=== PATIENT | female | born 1940 | race Caucasian/White ===

== ENCOUNTER 2017-04-26 06:22 | Inpatient (IN) ==
[2017-04-26] MEDS ORDERED: DUONEB (A & A) INH ONE (06:51)
[2017-04-26] MEDS ORDERED: SOLU-MEDROL IV ONE (06:51)
[2017-04-26 07:08] LABS: ALLEN TEST YES; BE 3.4 mmoll (-3.0-3.0); BLOOD TYPE ARTERIAL; DRAW SITE R RADIAL; O2(CT) 19.4 mL/dL (15.0-23.0); PCO2(98.6) 47 mmHg (35-45); PO2(98.6) 85 mmHg (60-100); SAMPLE BLOOD; SAO2 97.9 % (95.0-100.0); THB 14.6 g/dL (11.5-17.4)
[2017-04-26 07:09] LABS: MODALITY CANNULA
[2017-04-26 07:27] LABS: MANUAL DIFF NEEDED? NO
--- NOTE | 2017-04-26 07:28 | Diag Imaging Result Doc PS360 ---
EXAM: CHEST-PORTABLE - 04/26/2017 HISTORY: SOB TECHNIQUE: Portable chest 0655 COMPARISON: 05/10/2015 FINDINGS: Heart size is normal. There is an air-containing retrocardiac density consistent with large hiatal hernia again seen. The lungs appear clear. There are apparent mild COPD changes. There is no pleural effusion or pneumothorax identified. There is deviation the lower trachea to the right which appears to be chronic. IMPRESSION: Large hiatal hernia. Mild COPD changes. No other evidence of acute disease. Electronically signed by Joe Salcedo 04/26/2017 7:26 AM
[2017-04-26 07:30] LABS: BASO% 0.3 % (0.0-0.8); EOS# 0.38 X1000 (0.0-0.7); EOS% 3.3 % (0.0-10.0); HEMATOCRIT 44.5 % (37.0-47.0); HEMOGLOBIN 14.8 g/dL (12.0-16.0); IMM GRAN# 0.02 X1000 (0.0-0.04); IMM GRAN% 0.2 % (0.0-0.5); LYMPH# 1.79 X1000 (1.2-3.4); LYMPH% 15.3 % (20.5-51.1); MCH 28.3 PG (27-31); MCHC 33.3 g/dL (33-37); MCV 85.1 FL (81-99); MONO# 0.77 X1000 (0.11-0.59); MONO% 6.6 % (1.7-9.3); MPV 12.2 FL (7.4-10.4); NEUT% 74.3 % (42.2-75.2); PLT 222 X1000 (130-400); RBC 5.23 XMIL (4.2-5.4)
[2017-04-26 07:40] LABS: INR 0.96; PROTIME 10.1 Seconds (9.2-11.7)
[2017-04-26 07:49] LABS: AGAP 13; ALKALINE PHOSPHATASE 52 U/L (32-104); BUN 13 mg/dL (8-22); CALCIUM 9.3 mg/dL (8.8-10.2); CHLORIDE 102 mmol/L (98-107); CK PROFILE 97 U/L (24-173); COSMO 284; GOT 17 U/L (10-30); GPT 11 U/L (10-36); MAGNESIUM 2.3 mg/dL (1.5-2.7); POTASSIUM 4.5 mmol/L (3.5-5.1); SODIUM 142 mmol/L (136-145); TCO2 27 mmol/L (25-35); TOTAL BILIRUBIN 0.23 mg/dL (0.20-1.00); TOTAL PROTEIN 6.9 g/dL (6.3-8.3)
--- NOTE | 2017-04-26 08:43 | PROVIDER DOCUMENTATION ---
HPI-Respiratory General - General Chief Complaint: Shortness of Breath Stated Complaint: SOB Time Seen by Provider: 04/26/17 06:30 Source: patient, family Allergies/Adverse Reactions: Patient Allergies Allergy/AdvReac Type Severity Reaction Status Date / Time Cephalosporins Allergy Severe Unknown Verified 05/10/13 16:10 ciprofloxacin [From Cipro] Allergy Severe Unknown Verified 05/10/13 16:10 ciprofloxacin HCl * Allergy Severe Unknown Verified 05/10/13 16:10 [From Cipro] codeine [Codeine] Allergy Severe RASH Verified 05/10/13 16:10 meperidine HCl * Allergy Severe NAUSEA/VOMI Verified 05/10/13 16:10 [From Demerol] TING Penicillins Allergy Severe RASH Verified 05/10/13 16:10 aspirin Allergy Intermediate RASH Verified 05/10/13 16:10 morphine Allergy Intermediate Unknown Verified 05/11/13 07:14 Corticosteroids Allergy Unknown Verified 05/12/13 11:11 (Glucocorticoids) Iodinated Contrast Media - Allergy Unknown Verified 05/12/13 11:12 Oral and atropine sulfate * Allergy Unknown Verified 05/10/13 16:10 [From Lomotil] diphenoxylate HCl * Allergy Unknown Verified 05/10/13 16:10 [From Lomotil] Home Medications: Home Medication List Medication Instructions Recorded Confirmed Last Taken Type Albuterol [Albuterol Neb] 2.5 mg INH RTQ6H 05/10/13 05/10/13 Unknown History Fluticasone 50 Mcg Nasal [place] 2 spray EDMAR DAILY 05/10/13 05/10/13 Unknown History [Flonase] Ipratropium [place] Neb [Atrovent 0.5 mg INH RTQ6H 05/10/13 05/10/13 05/11/13 07 :00 History Neb] Levothyroxine Sodium [Levoxyl] 100 mcg PO 05/10/13 05/10/13 05/11/13 05:00 History Levothyroxine [Synthroid] 100 microgm PO DAILY 05/10/13 05/10/13 Unknown History Omeprazole [Prilosec] 20 mg PO DAILY@0700 05/10/13 05/10/13 Unknown History Paroxetine [Paxil] 20 mg PO DAILY 05/10/13 05/10/13 05/10/13 21:00 History Hydrocodone/Acetaminophen [Lortab 1 each PO Q4H PRN PRN #0 tablet 05/12/13 Unknown Rx 5-500 Tablet] Multivitamin/Iron/Folic Acid 1 each PO DAILY #0 tablet 05/12/13 Unknown Rx [Multi Complete-Iron Tablet] - History of Present Illness-Resp Nature of Presenting Problem: Reports SOB since 2 days ago, and progressively getting worse. H/o COPD on home O2 X years ago, but she was taken off of O2 after quitting smoking a couple of years ago. Pt went back to smoking recently and her SOB is getting worse again. Quality of Pain: reports: none Severity in ED: reports: moderate Onset/Duration: reports: 2 days ago Timing: reports: still present Context: denies: recent foreign travel, insect bite (possible tick) Exposure: reports: unknown cause Cough Quality/Degree: reports: moderate, dry cough Episode Frequency: chronic episodes Current Respiratory Medication Therapy: Initiated see nurses note Modifying Factors: improves with: nothing Associated Symptoms: reports: cough, shortness of breath, wheezing Similar Symptoms Previously?: Yes Recently seen or treated by another doctor?: Yes Review of Systems - Adult - REVIEW OF SYSTEMS - ADULT Constitutional: reports: no symptoms reported Eyes: reports: no symptoms reported Ears, Nose, Mouth & Throat: reports: no symptoms reported Cardiovascular: reports: no symptoms reported. denies: chest pain Respiratory: reports: see HPI, chronic cough, shortness of breath, wheezing Gastrointestinal: reports: no symptoms reported Genitourinary: reports: no symptoms reported Musculoskeletal: reports: no symptoms reported Integumentary: reports: no symptoms reported Neurological: reports: no symptoms reported Psychiatric: reports: no symptoms reported Endocrine: reports: no symptoms reported Hematologic/Lymphatic: reports: no symptoms reported Allergic/Immunologic: reports: no symptoms reported All Other Systems: Reviewed and Negative Past History - Adult - PAST MEDICAL HISTORY-ADULT Review of Records: reports: Old Records Reviewed, Nursing Assessment Review, Medications Reviewed Physical Exam-General - PHYSICAL EXAM-ADULT Initial Vital Signs Reviewed: Yes - CONSTITUTIONAL General Appearance: appears well, alert, no apparent distress - EYES Eyes: PERRL/EOMI, pink conjunctivae - HEAD, EARS, NOSE, MOUTH & THROAT HENMT: normocephalic/atraumatic, moist mucous membranes, normal ENT inspection - NECK Neck: non-tender, full range of motion, supple - RESPIRATORY Respiratory: chest non-tender, normal breath sounds, no pleuratic chest pain, no respiratory distress, no accessory muscle use, decreased breath sounds, wheezing. negative: rales, rhonchi - CARDIOVASCULAR Cardiovascular: normal peripheral pulses, regular rate, rhythm, no edema - GASTROINTESTINAL (ABDOMEN) Abdominal Exam: normal bowel sounds, non tender, soft, no organomegaly, no pulsatile mass - MUSCULOSKELETAL Back Exam: normal inspection, no CVA tenderness, no vertebral tenderness Extremity: normal range of motion, non-tender, normal gait - SKIN Integumentary: normal color, normal turgor, warm/dry - NEUROLOGIC Neurologic: no motor/sensory deficits, abnormal gait - PSYCHIATRIC Psych/Mental Status: normal mood/affect, normal thought content, normal thought process, oriented x 3 Progress - PLAN OF CARE/RESULTS Progress/Plan/Lab Results: Vital Signs - 8 hr 04/26/17 06:36 04/26/17 06:39 04/26/17 06:55 Temperature 98.0 F Pulse Rate 94 H 94 H 96 H Respiratory Rate 13 26 H 22 Blood Pressure 141/95 141/95 O2 Sat by Pulse Oximetry 92 L 90 L 95 04/26/17 07:05 Temperature Pulse Rate 97 H Respiratory Rate 22 Blood Pressure 141/95 O2 Sat by Pulse Oximetry 96 Laboratory Results - last 24 hr 04/26/17 04/26/17 04/26/17 06:51 07:17 07:17 WBC 11.69 H RBC 5.23 Hgb 14.8 Hct 44.5 MCV 85.1 MCH 28.3 MCHC 33.3 RDW Std Deviation 13.8 Plt Count 222 MPV 12.2 H Immature Gran % (Auto) 0.2 Neut % (Auto) 74.3 Lymph % (Auto) 15.3 L [place] % (Auto) 6.6 Eos % (Auto) 3.3 Baso % (Auto) 0.3 Immature Gran # (Auto) 0.02 Neut # (Auto) 8.69 H Lymph # (Auto) 1.79 [place] # (Auto) 0.77 H Eos # (Auto) 0.38 Baso # (Auto) 0.04 PT INR PTT (Actin FS) D-Dimer Specimen Type ARTERIAL Sample Site R RADIAL pH 7.40 pCO2 47 H pO2 85 HCO3 27.5 H Base Excess 3.4 H Oxyhemoglobin 94.3 L ABG O2 Sat (Calculated) 19.4 ABG O2 Saturation 97.9 ABG Carboxyhemoglobin 2.60 H ABG Methemoglobin 1.0 Silvano Test YES A-a O2 Difference 84.0 Total Hemoglobin 14.6 Lactate 1.30 Liter Flow 3.0 Blood Gas Modality CANNULA FiO2 % 32.0 Sodium 142 Potassium 4.5 Chloride 102 Carbon Dioxide 27 Anion Gap 13 BUN 13 Creatinine 0.8 Estimated GFR/1.73 m2 > 60 BUN/Creatinine Ratio 16 Glucose 107 H Calculated Osmolality 284 Calcium 9.3 Magnesium 2.3 Total Bilirubin 0.23 AST 17 ALT 11 Alkaline Phosphatase 52 Creatine Kinase 97 Troponin T [id number] Pept Total Protein 6.9 Albumin 4.0 Globulin 2.9 Albumin/Globulin Ratio 1.4 04/26/17 04/26/17 04/26/17 07:17 07:17 07:17 WBC RBC Hgb Hct MCV MCH MCHC RDW Std Deviation Plt Count MPV Immature Gran % (Auto) Neut % (Auto) Lymph % (Auto) [place] % (Auto) Eos % (Auto) Baso % (Auto) Immature Gran # (Auto) Neut # (Auto) Lymph # (Auto) [place] # (Auto) Eos # (Auto) Baso # (Auto) PT 10.1 INR 0.96 PTT (Actin FS) 24.0 D-Dimer 0.29 Specimen Type Sample Site pH pCO2 pO2 HCO3 Base Excess Oxyhemoglobin ABG O2 Sat (Calculated) ABG O2 Saturation ABG Carboxyhemoglobin ABG Methemoglobin [place] Test A-a O2 Difference Total Hemoglobin Lactate Liter Flow Blood Gas Modality FiO2 % Sodium Potassium Chloride Carbon Dioxide Anion Gap BUN Creatinine Estimated GFR/1.73 m2 BUN/Creatinine Ratio Glucose Calculated Osmolality Calcium Magnesium Total Bilirubin AST ALT Alkaline Phosphatase Creatine Kinase Troponin T [id number]-I-Xnfgyoxuqna Pept 651 H Total Protein Albumin Globulin Albumin/Globulin Ratio 04/26/17 07:17 WBC RBC Hgb Hct MCV MCH MCHC RDW Std Deviation Plt Count MPV Immature Gran % (Auto) Neut % (Auto) Lymph % (Auto) [place] % (Auto) Eos % (Auto) Baso % (Auto) Immature Gran # (Auto) Neut # (Auto) Lymph # (Auto) [place] # (Auto) Eos # (Auto) Baso # (Auto) PT INR PTT (Actin FS) D-Dimer Specimen Type Sample Site pH pCO2 pO2 HCO3 Base Excess Oxyhemoglobin ABG O2 Sat (Calculated) ABG O2 Saturation ABG Carboxyhemoglobin ABG Methemoglobin [place] Test A-a O2 Difference Total Hemoglobin Lactate Liter Flow Blood Gas Modality FiO2 % Sodium Potassium Chloride Carbon Dioxide Anion Gap BUN Creatinine Estimated GFR/1.73 m2 BUN/Creatinine Ratio Glucose Calculated Osmolality Calcium Magnesium Total Bilirubin AST ALT Alkaline Phosphatase Creatine Kinase Troponin T < 0.010 Fcx-N-Xhjypknfwtm Pept Total Protein Albumin Globulin Albumin/Globulin Ratio Orders Category Date Time Status Cardiac Monitoring DIRECTED Care 04/26/17 06:51 Active Gloria Cath Insertion ORDERED Care 04/26/17 07:24 Active Oxygen Therapy- ED Nursing DIRECTED Care 04/26/17 06:51 Active Saline Loc NOW Care 04/26/17 06:51 Active CHEST-PORTABLE [RAD] Stat Exams 04/26/17 06:51 Completed ABG [RESP] Routine Lab 04/26/17 06:51 Completed CBC WITH ELECTRONIC DIFF [HEME] Stat Lab 04/26/17 07:17 Completed CK PROFILE [SP CHEM] Stat Lab 04/26/17 07:17 Completed COMPREHENSIVE METABOLIC PANEL [CHEM] Stat Lab 04/26/17 07:17 Completed D-DIMER [CHEM] Stat Lab 04/26/17 07:17 Completed MAGNESIUM [CHEM] Stat Lab 04/26/17 07:17 Completed PRO B-NATRIURETIC PEPTIDE Stat Lab 04/26/17 07:17 Completed PROTIME WITH INR [COAG] Stat Lab 04/26/17 07:17 Completed PTT [COAG] Stat Lab 04/26/17 07:17 Completed TROPONIN T Stat Lab 04/26/17 07:17 Completed Albuterol 2.5MG/Ipratrop 0.5MG [Duoneb (A & A)] Med 04/26/17 06:51 Discontinued 6 ml INH NOW ONE Methylprednisolone Sod Succ [Solu-Medrol] Med 04/26/17 06:51 Discontinued 125 mg IV NOW ONE Aerosol Treatments Routine Oth 04/26/17 06:52 Completed Aerosol Treatments Stat Oth 04/26/17 06:52 Completed EKG [EKG] Stat Ther 04/26/17 06:51 Ordered Result Diagrams: 04/26/17 07:17 04/26/17 07:17 - REASSESSMENT Reassessment #1 Time Reassessed: 08:48 Status: other (Pt's SO2 drops to 88- 89% after O2 stopped. Pt will be admitted to hospital for hypoxia) Departure - Departure Date of Disposition Decision: 04/26/17 Time of Disposition Decision: 08:49 DIAGNOSIS: SOB (shortness of breath), Hypoxia, COPD exacerbation Disposition: ADMITTED INPATIENT 09 Certified Medical Emergency: Emergent Condition: Stable Referrals and Follow-Ups: Hilton Abdalla MD [Primary Care Provider] - - Critical Care Note This patient required my direct & personal management of CC.: No
[2017-04-26] MEDS ORDERED: LEVAQUIN 500 MG/D5W 500 MG/100 ML IVPB IV ONE (08:50)
--- NOTE | 2017-04-26 09:13 | ED EKG INTERP ---
This chart was entered by Chela Burgess Scribe, acting as scribe for Vance Carver MD. EKG Interpretation - EKG Time of EKG reading by physician:: 06:55 EKG Read and Signed by:: Vance Carver EKG Interpretation (*Must complete 3 of following elements*): Abnormal Rate: 95 Rhythm: normal sinus rhythm Comments: nonspecific ST abnormality This chart was documented by the indicated scribe, (Chela Burgess Scribe) and accurately reflects the services I performed and decisions made by me, Vance Carver MD, as attested by the provider's signature.
[2017-04-26] MEDS ORDERED: TYLENOL PO PRN (10:51)
[2017-04-26] MEDS ORDERED: ZOFRAN IV PRN (10:51)
[2017-04-26] MEDS: NS 1,000 ML IV SCH (12:31)
--- NOTE | 2017-04-26 14:06 | HISTORY AND PHYSICAL ---
HISTORY OF PRESENT ILLNESS: This is a 77-year-old. I do not see where she has been here in the hospital or not admitted in a long time. PAST MEDICAL HISTORY: 1. She has a history of COPD. At 1 time she was O2 dependent. Recently she was weaned off of her O2. I think they did a sleep O2 saturation study at home. 2. Hypothyroidism. She is on thyroid replacement. 3. Gastroesophageal reflux disease. 4. Depression. PAST SURGICAL HISTORY: Umbilical hernia repair. She had abdominal wound exploratory surgery him. I think she had mesh placed in 2012. Status post hysterectomy. Status post cholecystectomy. SOCIAL HISTORY: Smoker, recently started back again. I think she had quit for a while. A pack a day. She has probably a greater than 30 year history. Alcohol occasional. Denies illicit drugs. FAMILY HISTORY: Father with a history cancer, stomach cancer. Sister with a history of diabetes mellitus. She of lung disease. Mother who of an aneurysm. REVIEW OF SYSTEMS: She feels like she has lost some weight. I think the daughters thought she has. I do not know that we could quantitate it. HEENT: Unremarkable. Respiratory: She had a spell this morning. She had a spell a little while back where she felt very short of breath and felt like she had wheezing and bronchospasm. Denies fever or chills. Cardiovascular: No chest pain or tachy palpitation reported. I do not hear a history of orthopnea, paroxysmal nocturnal dyspnea. GI: Unremarkable. : Unremarkable. Musculoskeletal: No new complaints. Neurologic: No new complaints. PHYSICAL EXAMINATION: VITAL SIGNS: Temp 98.0 degrees, pulse 97, respirations 22, blood pressure 141/95. HEENT: Pupils are equal and round. Mucous membranes are dry. Appears to have good color in the conjunctiva. NECK: CVP less than 6 cm. LUNGS: Decreased breath sounds in both bases but I did not appreciate any prolonged expiratory phase or wheezing at this time. CARDIOVASCULAR: Regular rhythm and rate without murmur or S3. ABDOMEN: Soft. SKIN: Warm and dry. LAB: White count 11,690, hematocrit 44, platelet count 222,000. Sodium 142, potassium 4.5, chloride 102, BUN 13, creatinine 0.8, magnesium 2.3. ProBNP was 651. Albumin 4.0. Protime 10, PTT 24. Blood gases, pH is 7.40, pCO2 47, and PO2 is 85% and that was on 32% FiO2. Chest x-ray: Large hiatal hernia, mild COPD changes. No other evidence of acute disease. ASSESSMENT AND PLAN: 1. She had her breathing spell. It is hard to know whether this is more subjective shortness of breath. She does not show any acute pathology. She does have a large hiatal hernia. She has underlying COPD. We will give her some breathing treatments. I do not see evidence of pulmonary venous hypertension, nor do I see any evidence to suggest a pulmonary thromboemboli. She is allergic apparently to prednisone so we will avoid steroids. Give her some breathing treatments. We will put on a steroid inhaler as well; maybe use Advair 250/50 one puff twice a day. We will check some additional labs including cortisone and thyroid, T4 and TSH in the morning. We will check B12 and folate. We can even get that on the lab today or get that in the morning. 2. Question on whether she has had some weight loss. We will kind of monitor how she does with p.o. intake. I note that she was on fluticasone or Flonase nasal spray at home. She is also taking Lortab p.r.n. I think we will hold that for now. 3. History of hypothyroidism. She is on Synthroid 100 mcg daily. I noticed she had 2 listed, Levoxyl and Synthroid. Will check her T4 and TSH. Hopefully she is not taking both. 4. History of depression and anxiety. She is on Paxil. 5. History gastroesophageal reflux. She is on Prilosec. cc: Silvano Urias MD
[2017-04-26] MEDS: XOPENEX NEB INH SCH ×2 (15:48)
[2017-04-26] MEDS: ATROVENT NEB INH SCH ×2 (15:48)
[2017-04-26 16:40] LABS: URINE MICRO REVIEW NEEDED? NO; URINE SOURCE CLEAN CATCH
[2017-04-26 16:45] LABS: BILIRUBIN URINE NEGATIVE (NEGATIVE); BLOOD URINE TRACE (NEGATIVE); COLOR STRAW; GLUCOSE URINE NEGATIVE (NEGATIVE); LEUKOCYTES URINE MODERATE (NEGATIVE); NITRITE URINE NEGATIVE (NEGATIVE); PROTEIN URINE NEGATIVE (NEGATIVE); TURBIDITY URINE CLEAR (CLEAR); UR EPITHELIAL CELLS <10 /HPF (<10); URINE BACTERIA NEGATIVE /HPF; URINE CULTURE NEEDED? YES; URINE RBC <10 /HPF (<10); UROBILINOGEN URINE NORMAL (NORMAL)
[2017-04-27] MEDS: NS 1,000 ML IV SCH (00:15)
[2017-04-27] MEDS: ATROVENT NEB INH SCH ×8 (02:29→23:25)
[2017-04-27] MEDS: XOPENEX NEB INH SCH ×7 (02:30→23:25)
--- NOTE | 2017-04-27 06:01 | EKG Report ---
Test Performed on : 04/27/2017 05:13:28 AM Test Reason : sob Blood Pressure : / mmHG Vent. Rate : 082 BPM Atrial Rate : 082 BPM P-R Int : 156 ms QRS Dur : 078 ms QT Int : 394 ms P-R-T Axes : 072 056 080 degrees QTc Int : 460 ms Normal sinus rhythm. Normal ECG When compared with ECG of 26-APR-2017 06:55, (Unconfirmed) No significant change was found Confirmed by Esteban Boswell MD ([id number]) on 04/27/2017 10:18:06 AM
[2017-04-27] MEDS: SYNTHROID PO SCH (06:07)
[2017-04-27] MEDS: PROTONIX PO SCH (06:07)
[2017-04-27] MEDS: FLONASE NAS SCH (08:00)
[2017-04-27] MEDS: PAXIL PO SCH (08:00)
[2017-04-27] MEDS: CENTRUM TABLET PO SCH (08:00)
[2017-04-27] MEDS: LOVENOX SUBQ SCH (08:00)
[2017-04-27] MEDS: LEVAQUIN 500 MG/D5W 500 MG/100 ML IVPB IV SCH (08:01)
[2017-04-27] MEDS: NICODERM PATCH TD SCH (08:01)
[2017-04-27 09:25] LABS: MANUAL DIFF NEEDED? NO
[2017-04-27 09:31] LABS: BASO% 0.4 % (0.0-0.8); EOS# 0.25 X1000 (0.0-0.7); EOS% 4.9 % (0.0-10.0); HEMATOCRIT 41.7 % (37.0-47.0); HEMOGLOBIN 13.5 g/dL (12.0-16.0); LYMPH# 1.24 X1000 (1.2-3.4); LYMPH% 24.3 % (20.5-51.1); MCH 28.2 PG (27-31); MCHC 32.4 g/dL (33-37); MCV 87.1 FL (81-99); MONO# 0.34 X1000 (0.11-0.59); MONO% 6.7 % (1.7-9.3); MPV 12.6 FL (7.4-10.4); NEUT% 63.7 % (42.2-75.2); PLT 198 X1000 (130-400); RBC 4.79 XMIL (4.2-5.4)
[2017-04-27 10:02] LABS: HEMOGLOBIN A1C 5.6 % (4.8-6.0)
[2017-04-27 10:17] LABS: AGAP 12; ALBUMIN 3.7 g/dL (3.5-5.0); ALKALINE PHOSPHATASE 46 U/L (32-104); BUN 7 mg/dL (8-22); CHLORIDE 102 mmol/L (98-107); COSMO 278; GOT 15 U/L (10-30); GPT 9 U/L (10-36); SODIUM 140 mmol/L (136-145); TCO2 26 mmol/L (25-35); TOTAL BILIRUBIN 0.36 mg/dL (0.20-1.00); TOTAL PROTEIN 6.3 g/dL (6.3-8.3)
[2017-04-27] MEDS: XANAX PO SCH ×2 (11:12→23:12)
--- NOTE | 2017-04-27 11:44 | PROGRESS NOTE ---
DATE: 04/27/2017 SUBJECTIVE: She had another spell that looked like it was more of a panic attack this morning. OBJECTIVE: Vital signs: Temp is 98.1 degrees, pulse 78, respirations 18, blood pressure 134/68. HEENT: Pupils are equal, round. Lungs: Clear in all lung nunez. Cardiovascular: Regular rhythm and rate without murmur or S3. Abdomen: Soft. Skin: Warm and dry. ASSESSMENT AND PLAN: On exam she appears to be breathing comfortably. Apparently she had a spell this morning where she did have wheezing. Lab unremarkable. Family would like me to try and help her with something for her anxiety. She is on Paxil already and I may just try a low dose of Xanax and see how we do with that; do that maybe twice a day. cc: Silvano Urias MD
[2017-04-27] MEDS: ADVAIR 250/50 DISKUS INH SCH (19:27)
[2017-04-28] MEDS: XOPENEX NEB INH SCH ×3 (03:23→10:54)
[2017-04-28] MEDS: ATROVENT NEB INH SCH ×3 (03:23→10:54)
[2017-04-28] MEDS: PROTONIX PO SCH (06:19)
[2017-04-28] MEDS: SYNTHROID PO SCH (06:19)
[2017-04-28] MEDS: ADVAIR 250/50 DISKUS INH SCH (07:26)
[2017-04-28 07:36] VITALS: BP 149/46
[2017-04-28] MEDS: NICODERM PATCH TD SCH (08:12)
[2017-04-28] MEDS: PAXIL PO SCH (08:12)
[2017-04-28] MEDS: FLONASE NAS SCH (08:12)
[2017-04-28] MEDS: CENTRUM TABLET PO SCH (08:12)
[2017-04-28] MEDS: LOVENOX SUBQ SCH (08:12)
[2017-04-28] MEDS: LEVAQUIN 500 MG/D5W 500 MG/100 ML IVPB IV SCH ×2 (08:17→10:31)
[2017-04-28] MEDS: XANAX PO SCH (10:31)
[2017-04-28] MEDS ORDERED: LEVAQUIN PO SCH (10:45)
[2017-04-29] MEDS ORDERED: SPIRIVA INH SCH (07:30)
--- NOTE | 2017-04-29 08:38 | DISCHARGE SUMMARY ---
ADMISSION DATE: 04/26/2017 DISCHARGE DATE: 04/28/2017 CONSULTATIONS: None. PERTINENT PROCEDURES: Chest x-ray showed a large hiatal hernia, mild COPD changes, no other evidence of acute disease. DISCHARGE DIAGNOSES: 1. Chronic obstructive pulmonary disease exacerbation, resolved. 2. Anxiety. The patient will continue on home Paxil and have add in Xanax, stable. 3. Hypothyroidism. Continue Synthroid. 4. Gastroesophageal reflux disease. Continue proton pump inhibitor. 5. Depression, stable. HOSPITAL COURSE: Ms. Moore is a 77-year-old. She carries a past medical history of COPD, recently weaned off her home O2, hypothyroidism, GERD, depression, reported to the ED with shortness of breath that started 2 days ago. That was progressively getting worse. The patient also reported she had quit smoking years ago, but she went back to smoking recently, and her shortness of breath has been getting worse again. She also reported panic attacks. The patient was admitted to the hospital for COPD exacerbation. She was given supplemental O2. Started on bronchodilators, as well as antibiotics. Clinically, the patient her shortness of breath has improved. For her anxiety they did add Xanax to her Paxil regimen. The patient is appropriate for discharge home today. VITAL SIGNS: Temperature is 97.8 degrees, heart rate 83, respirations 22, blood pressure is 149/46, O2 is 100%. DISCHARGE DIET: Regular. DISCHARGE MEDICATIONS: As per Dr. Booker: 1. Nebulizer inhaler 2.5 g inhaled RTV q. 6 hours. 2. Xanax 0.25 mg p.o. q. 12 hours. 3. Flonase 2 sprays nasally daily. 4. Lortab 5/500, one each p.o. q. 4 hours p.r.n. for pain. 5. Atrovent inhaler 0.5 mg inhaled q. 4 hours. 6. Levaquin 500 mg p.o. daily for 5 days. 7. Synthroid 125 mcg p.o. daily. 8. Multi complete iron tab 1 each p.o. daily. 9. Prilosec 20 mg p.o. daily. 10. Paxil 40 mg p.o. daily. FOLLOWUP: The patient is being currently discharged back home with her daughter and home O2 has been set up. Follow up with her primary care physician, Rm Flores. Again, she has been instructed about smoking cessation, as well as the means to quit daily. The patient can return to the ED for any worsening of symptoms. DISCHARGE TIME: 30 minutes. Dictated by TARA Myrick for Silas Ac MD cc: MD Hilton Escobar MD [facility]ITALTahira
== END 2017-04-28 13:37 | disposition home or self-care (01) ==
LOC: ED 06:22 → SUATTDRO 10:44 → 4N 10:44
PROVIDERS: ATTEND Internal Medicine

== ENCOUNTER 2019-07-16 03:06 | Inpatient (IN) ==
[~2019-07-16 03:06] MED LIST: ATIVAN ONE
--- NOTE | 2019-07-16 03:59 | PROVIDER DOCUMENTATION ---
HPI-Cardiopulmonary Arrest - General Chief Complaint: Full Arrest Stated Complaint: full arrest Time Seen by Provider: 07/16/19 03:53 Source: EMS Allergies/Adverse Reactions: Allergies Allergy/AdvReac Type Severity Reaction Status Date / Time Cephalosporins Allergy Severe Unknown Verified 07/16/19 03:51 ciprofloxacin [From Cipro] Allergy Severe Unknown Verified 07/16/19 03:51 ciprofloxacin HCl * Allergy Severe Unknown Verified 07/16/19 03:51 [From Cipro] codeine [Codeine] Allergy Severe RASH Verified 07/16/19 03:51 meperidine HCl * Allergy Severe NAUSEA/VOMI Verified 07/16/19 03:51 [From Demerol] TING Penicillins Allergy Severe RASH Verified 07/16/19 03:51 aspirin Allergy Intermediate RASH Verified 07/16/19 03:51 morphine Allergy Intermediate Unknown Verified 07/16/19 03:51 Corticosteroids Allergy Unknown Unknown Verified 07/16/19 03:51 (Glucocorticoids) Iodinated Contrast Media Allergy Unknown Unknown Verified 07/16/19 03:51 atropine sulfate * Allergy Unknown Verified 07/16/19 03:51 [From Lomotil] diphenoxylate HCl * Allergy Unknown Verified 07/16/19 03:51 [From Lomotil] Home Medications: Home Medication List Medication Instructions Recorded Confirmed Last Taken Type Albuterol [Albuterol Neb] 2.5 mg INH RTQ6H 05/10/13 04/27/17 Unknown History Fluticasone 50 Mcg Nasal [place] 2 spray EDMAR DAILY 05/10/13 04/27/17 Unknown History [Flonase] Ipratropium [place] Neb [Atrovent 0.5 mg INH RTQ6H 05/10/13 04/27/17 05/11/13 07:00 History Neb] Levothyroxine [Synthroid] 125 microgm PO DAILY 05/10/13 04/27/17 Unknown History Omeprazole [Prilosec] 20 mg PO DAILY@0700 05/10/13 04/27/17 Unknown History Paroxetine [Paxil] 40 mg PO DAILY 05/10/13 04/27/17 05/10/13 21:00 History Hydrocodone/Acetaminophen [Lortab 1 each PO Q4H PRN PRN #0 tablet 05/12/13 04/27/17 Unknown Rx 5-500 Tablet] Multivitamin/Iron/Folic Acid 1 each PO DAILY #0 tablet 05/12/04/27/17 Unknown Rx [Multi Complete-Iron Tablet] Alprazolam [Xanax] 0.25 mg PO Q12H #60 tablet 04/28/17 Unknown Rx Ipratropium [place] Neb [Atrovent 0.5 mg INH RTQ4H neb 04/28/17 Unknown Rx Neb] Levofloxacin [Levaquin] 500 mg PO DAILY #5 tablet 04/28/17 Unknown Rx - History of Present Illness-C/P Arrest Reason for Code Blue?: respiratory arrest Witnessed arrest?: Yes Noted by:: family Bystander CPR?: Yes CPR initiated before doctor arrival?: Yes Down-time before ACLS?: see above Down-time before ACLS? (in minutes, if known): 1 Initial Findings: confused Treatment initiated prior to doctor arrival?: Initiated oxygen, Initiated intubated, Initiated CPR/thumper Similar Symptoms Previously?: No Recently seen or treated by another doctor?: No - Pre-hospital Treatment EMS Initial Findings:: unresponsive EMS Initial EKG Rhythm: pea Pre-hospital Treatment: Initiated oxygen, Initiated intubated, Initiated CPR Review of Systems - Adult - REVIEW OF SYSTEMS - ADULT ROS:: unobtainable per condition Constitutional: reports: no symptoms reported Past History - Adult - PAST MEDICAL HISTORY-ADULT Review of Records: reports: Old Records Reviewed, Nursing Assessment Review Major Childhood Illnesses: reports: denies history Cardiovascular: reports: HTN Respiratory: reports: COPD Gastrointestinal: reports: denies history Obstetrical/Gynecological: reports: denies history Genitourinary: reports: denies history Musculoskeletal: reports: denies history Neurological: reports: denies history Psychiatric: reports: anxiety, depression Endocrine/Immune: reports: denies history Other Conditions: reports: denies history - IMMUNIZATION STATUS Childhood Immunizations: See Nurse Assessment Flu Vaccine: See Nurse Assessment - FAMILY HISTORY Family History: reviewed, not pertinent Physical Exam-General - PHYSICAL EXAM-ADULT Initial Vital Signs Reviewed: Yes - CONSTITUTIONAL General Appearance: obtunded - EYES Eyes: other (right pupil 8mm. left 4mm) - HEAD, EARS, NOSE, MOUTH & THROAT HENMT: normocephalic/atraumatic - RESPIRATORY Respiratory: lungs clear, normal breath sounds - CARDIOVASCULAR Cardiovascular: normal peripheral pulses, tachycardia - GASTROINTESTINAL (ABDOMEN) Abdominal Exam: soft - LYMPHATIC Lymphatic: no adenopathy - MUSCULOSKELETAL Back Exam: normal inspection Extremity: normal range of motion, other (no response to pain) - SKIN Integumentary: blanching, mottled - NEUROLOGIC Neurologic: other (obtunded) Progress - PLAN OF CARE/RESULTS Progress/Plan/Lab Results: Vital Signs - 8 hr 07/16/19 03:10 07/16/19 03:54 07/16/19 03:57 Temperature 96.8 F L Pulse Rate 128 H 90 89 Respiratory Rate 18 16 20 Blood Pressure 151/95 79/61 78/60 O2 Sat by Pulse Oximetry 100 98 97 07/16/19 04:02 07/16/19 04:07 07/16/19 04:13 Temperature Pulse Rate 89 87 92 H Respiratory Rate 20 15 22 Blood Pressure 94/58 77/60 45/29 O2 Sat by Pulse Oximetry 98 07/16/19 04:18 07/16/19 04:22 07/16/19 04:27 Temperature Pulse Rate 83 88 96 H Respiratory Rate 13 25 H 23 Blood Pressure 87/66 92/72 86/67 O2 Sat by Pulse Oximetry 100 99 07/16/19 04:30 07/16/19 04:32 07/16/19 04:37 Temperature Pulse Rate 91 H 92 H 94 H Respiratory Rate 29 H 22 33 H Blood Pressure 101/67 106/71 O2 Sat by Pulse Oximetry 98 94 L 87 L 07/16/19 04:42 07/16/19 04:45 07/16/19 04:47 Temperature Pulse Rate 95 H 95 H 95 H Respiratory Rate 28 H 27 H 36 H Blood Pressure 98/69 108/68 O2 Sat by Pulse Oximetry 83 L 82 L 80 L 07/16/19 04:52 07/16/19 04:57 07/16/19 05:00 Temperature Pulse Rate 91 H 89 89 Respiratory Rate 35 H 39 H 40 H Blood Pressure 91/58 94/65 O2 Sat by Pulse Oximetry 79 L 79 L 79 L 07/16/19 05:02 07/16/19 05:07 07/16/19 05:12 Temperature Pulse Rate 89 87 87 Respiratory Rate 41 H 41 H 40 H Blood Pressure 93/63 98/63 96/65 O2 Sat by Pulse Oximetry 79 L 79 L 79 L 07/16/19 05:15 07/16/19 05:17 07/16/19 05:22 Temperature Pulse Rate 89 86 85 Respiratory Rate 34 H 42 H 40 H Blood Pressure 95/64 93/63 O2 Sat by Pulse Oximetry 79 L 80 L 80 L 07/16/19 05:27 07/16/19 05:30 07/16/19 05:32 Temperature Pulse Rate 83 82 85 Respiratory Rate 40 H 40 H 41 H Blood Pressure 90/59 95/64 O2 Sat by Pulse Oximetry 81 L 81 L 80 L 07/16/19 05:37 07/16/19 05:42 07/16/19 05:45 Temperature Pulse Rate 83 83 82 Respiratory Rate 42 H 41 H 41 H Blood Pressure 95/63 93/62 O2 Sat by Pulse Oximetry 81 L 81 L 82 L 07/16/19 05:47 07/16/19 05:52 07/16/19 05:57 Temperature Pulse Rate 81 82 81 Respiratory Rate 41 H 41 H 42 H Blood Pressure 92/54 93/62 91/62 O2 Sat by Pulse Oximetry 82 L 82 L 82 L 07/16/19 06:00 07/16/19 06:02 07/16/19 06:07 Temperature Pulse Rate 81 81 82 Respiratory Rate 41 H 42 H 37 H Blood Pressure 94/61 95/66 O2 Sat by Pulse Oximetry 82 L 81 L 81 L 07/16/19 06:12 07/16/19 06:15 07/16/19 06:17 Temperature Pulse Rate 82 82 81 Respiratory Rate 39 H 40 H 40 H Blood Pressure 98/69 97/64 O2 Sat by Pulse Oximetry 80 L 80 L 80 L 07/16/19 06:22 07/16/19 06:27 07/16/19 06:30 Temperature Pulse Rate 83 83 83 Respiratory Rate 41 H 42 H 39 H Blood Pressure 95/61 93/65 O2 Sat by Pulse Oximetry 81 L 81 L 81 L Laboratory Results - last 24 hr 07/16/19 07/16/19 07/16/19 02:57 02:57 02:57 WBC RBC Hgb Hct MCV MCH MCHC RDW Std Deviation Plt Count MPV Immature Gran % (Auto) Neut % (Auto) Lymph % (Auto) [place] % (Auto) Eos % (Auto) Baso % (Auto) Immature Gran # (Auto) Neut # (Auto) Lymph # (Auto) [place] # (Auto) Eos # (Auto) Baso # (Auto) Sodium 142 Potassium 4.4 Chloride 94 L Carbon Dioxide 23 L Anion Gap 25 BUN 15 Creatinine 1.0 H Estimated GFR/1.73 m2 54 BUN/Creatinine Ratio 15 Glucose 372 H Calculated Osmolality 299 Calcium 8.6 L Total Bilirubin 0.18 L AST 76 H ALT 101 H Alkaline Phosphatase 78 Creatine Kinase 96 Troponin T < 0.010 Eht-Z-Atjnxwtypva Pept 90 Total Protein 5.7 L Albumin 3.8 Globulin 1.9 Albumin/Globulin Ratio 2.0 07/16/19 02:57 WBC 15.05 H RBC 5.03 Hgb 14.2 Hct 43.8 MCV 87.1 MCH 28.2 MCHC 32.4 L RDW Std Deviation 13.7 Plt Count 232 MPV 12.3 H Immature Gran % (Auto) 1.3 H Neut % (Auto) 20.2 L Lymph % (Auto) 74.0 H [place] % (Auto) 2.8 Eos % (Auto) 1.3 Baso % (Auto) 0.4 Immature Gran # (Auto) 0.19 H Neut # (Auto) 3.05 Lymph # (Auto) 11.14 H [place] # (Auto) 0.42 Eos # (Auto) 0.19 Baso # (Auto) 0.06 Sodium Potassium Chloride Carbon Dioxide Anion Gap BUN Creatinine Estimated GFR/1.73 m2 BUN/Creatinine Ratio Glucose Calculated Osmolality Calcium Total Bilirubin AST ALT Alkaline Phosphatase Creatine Kinase Troponin T Tqj-B-Wzezwjiktkv Pept Total Protein Albumin Globulin Albumin/Globulin Ratio Orders Category Date Time Status Resuscitation Status Routine Care 07/16/19 06:13 Ordered CBC WITH ELECTRONIC DIFF [HEME] Stat Lab 07/16/19 02:57 Completed CK TOTAL [CHEM] Stat Lab 07/16/19 02:57 Completed COMPREHENSIVE METABOLIC PANEL [CHEM] Stat Lab 07/16/19 02:57 Completed PRO B-NATRIURETIC PEPTIDE Stat Lab 07/16/19 02:57 Completed TROPONIN T Stat Lab 07/16/19 02:57 Completed UA Reflex [URINALYSIS W/POSS RFLX CULT] [URINALYSIS] Lab 07/16/19 03:06 Uncollected Stat Lorazepam [Ativan] Med 07/16/19 02:57 Discontinued 2 mg .ROUTE .STK-MED ONE Result Diagrams: 07/16/19 02:57 07/16/19 02:57 Departure - Departure Date of Disposition Decision: 07/16/19 Time of Disposition Decision: 07:43 DIAGNOSIS: Stroke Disposition: ADMITTED INPATIENT 09 Certified Medical Emergency: Emergent Condition: Critical Referrals and Follow-Ups: Hilton Abdalla MD [Primary Care Provider] - - Critical Care Note This patient required my direct & personal management of CC.: Yes Total Time (mins): 92 Critical Care Statement: This patient required my direct personal management to treat or rule out processes, the absence of which, could potentiallly result in sudden, clinically significant life or limb threatening deterioration. Attestation - Physician/ ISAURA Attestation Patient care was provided by Advanced Practice Provider:: No The physician spent face to face time with patient:: Yes Advanced Practice Provider documentation review:: Supervising physician onsite and consulted in the evaluation and care of this patient. The physician did have a face to face encounter with the patient.
[2019-07-16 04:03] LABS: BASO# 0.06 X1000 (0.0-0.2); BASO% 0.4 % (0.0-0.8); EOS# 0.19 X1000 (0.0-0.7); EOS% 1.3 % (0.0-10.0); HEMATOCRIT 43.8 % (37.0-47.0); HEMOGLOBIN 14.2 g/dL (12.0-16.0); IMM GRAN# 0.19 X1000 (0.0-0.04); IMM GRAN% 1.3 % (0.0-0.5); LYMPH# 11.14 X1000 (1.2-3.4); MCH 28.2 PG (27-31); MCHC 32.4 g/dL (33-37); MCV 87.1 FL (81-99); MONO# 0.42 X1000 (0.11-0.59); MONO% 2.8 % (1.7-9.3); MPV 12.3 FL (7.4-10.4); NEUT# 3.05 X1000 (1.4-6.5); NEUT% 20.2 % (42.2-75.2); PLT 232 X1000 (130-400); RBC 5.03 XMIL (4.2-5.4); RDW 13.7 % (11.5-14.5); WBC 15.05 X1000 (4.8-10.8)
[2019-07-16 04:17] LABS: ALBUMIN 3.8 g/dL (3.5-5.0); CALCIUM 8.6 mg/dL (8.8-10.2); POTASSIUM 4.4 mmol/L (3.5-5.1); TOTAL BILIRUBIN 0.18 mg/dL (0.20-1.00); TOTAL PROTEIN 5.7 g/dL (6.3-8.3)
--- NOTE | 2019-07-16 08:36 | Diag Imaging Result Doc PS360 ---
EXAM: CT HEAD W/O CONTRAST 07/16/2019 HISTORY: unresponsive TECHNIQUE: This exam was performed using automated exposure control, adjustment of mA or kV according to patient size, and/or use of iterative reconstruction technique. COMMENT: There are patchy periventricular white matter lucencies particularly around the atria of the lateral ventricles. There is no evidence of mass effect, bleed, or abnormal extra-axial fluid collection. There is hyperostosis frontalis interna. The paranasal sinuses are clear. The calvarium is otherwise intact. IMPRESSION: Chronic microvascular changes. No evidence of acute disease. If clinically indicated further evaluation with MRI may be desirable. Electronically signed by Son Tristan 07/16/2019 8:34 AM
--- NOTE | 2019-07-16 09:14 | HISTORY AND PHYSICAL ---
PRIMARY CARE PHYSICIAN: Dr. Abdalla. CHIEF COMPLAINT: Full arrest. HISTORY OF PRESENTING ILLNESS: This is a 79-year-old female who presents to [facility] via EMS. After the daughter states that she woke up this morning and was not feeling well and stated that she had a frontal headache and some shortness of breath, the daughter went to give her her breathing treatment and the patient laid back on the bed and did not have a pulse or respirations. Her grandson was in the home also and began CPR and they called 911. When she arrived to the emergency room, she was in full arrest, intubated by EMS. Blood pressure on arrival was 151/95 with a pulse of 128, respirations were 18. Her blood pressures began to drop and got as low as 45/29. She, on her neurological exam, had no response to pain, was obtunded. Her right eye pupil was 8 mm, her left was 4 mm. Discussed code status and overall prognosis per the ER physician and the family made the decision to extubate and do comfort measures only. It is noted that after she was extubated, her blood pressure did come up to 93/65, but was saturating 81% and family has decided that the patient will be comfort measures only, so she will be admitted to the medical unit at this time. PAST MEDICAL HISTORY: Hypertension and COPD. PAST SURGICAL HISTORY: Hysterectomy, cholecystectomy and a hernia repair. FAMILY HISTORY: Her mom passed of a CVA. SOCIAL HISTORY: She was currently living with family. She was a pack a day smoker since she was 17 years old, but she did have a time span of 15 years that she had quit, but is currently back smoking a pack a day. Denies any alcohol or illicit drug use. ALLERGIES: Cephalosporins, Cipro, codeine, Demerol, penicillin, aspirin, morphine, corticosteroid, iodinated contrast media, atropine and Lomotil. HOME MEDICATIONS: Will all be held at this time as she n.p.o. LABORATORY DATA: Showed a white blood cell count of 15.05, hemoglobin 14.2, hematocrit 43.8, platelets 232,000. Sodium 142, potassium 4.4, chloride 94, CO2 23, BUN of 15, creatinine 1, glucose 372, AST of 76, ALT 106. Cardiac enzyme was negative. ProBNP of 90. IMAGING: CT of the head without contrast is pending. REVIEW OF SYSTEMS: Unable to obtain. PHYSICAL EXAMINATION: VITAL SIGNS: On arrival, she had a temperature of 96.8 degrees, pulse 128, respirations 18, blood pressure 151/95, saturating 100% on an Ambu bag. Blood pressure did get as low as 45/29 and at that point, the patient was intubated and the family made the decision to extubate and place on comfort measures. Her blood pressure did come up to 97/64, but she was saturating 80% on room air. GENERAL: This is a 79-year-old female. HEENT: Normocephalic, atraumatic. Normal ENT inspection. Oropharynx and nares are clear. Eyes, right pupil is 8 mm, left is 4 mm, unequal. Unable to assess any extraocular movements. The patient is noted to be obtunded. LUNGS: Clear to auscultation bilaterally with equal lung expansion and chest wall movement. HEART: She had tachycardia when she first arrived, but no murmurs, rubs, or gallops are noted and she is back in the 80s with a pulse. ABDOMEN: Soft, nontender, nondistended. Bowel sounds are present x4 quadrants. MUSCULOSKELETAL: Unable to obsess. NEUROLOGICAL: Unable to assess but patient again is noted to have unequal pupils, obtunded, no response to pain. Awaiting CT results to verify that she has had a stroke. ASSESSMENT: 1. Presumed acute cerebrovascular accident. 2. Respiratory arrest. 3. Hypotension. 4. Leukocytosis. 5. Tobacco abuse. PLAN: Patient is now a comfort measure only, DNR level 1. She will be n.p.o., Ativan 1 mg IV q.4 hours p.r.n., give Dilaudid 1 mg IV q.3 hours p.r.n., Zofran 4 mg IV q.4 hours p.r.n. We will consult Palliative Care. Family at bedside. All questions reviewed and answered. Further orders after seen by attending. Dictated by TARA Dorsey for Matthew Park MD cc: TARA Dorsey MD Kenneth E. Mashburn, MD
[2019-07-16] MEDS ORDERED: ZOFRAN IV PRN (09:45)
[2019-07-16] MEDS: ATIVAN IV PRN ×6 (09:51→22:02)
[2019-07-16] MEDS ORDERED: ATIVAN ONE (09:51)
[2019-07-16] MEDS ORDERED: ROBINUL PO ONE (14:00)
--- NOTE | 2019-07-16 14:38 | HISTORY AND PHYSICAL ---
ADDENDUM: Ms. Moore was admitted early on today because of cardiopulmonary arrest at home. I understand CPR was done. There was not any spontaneous return of circulation. She came to the emergency room, was seen at about 3:53 a.m. early this morning. She was subsequently intubated; however, because she is DNR level 1, the family members opted for her compassionate extubation, which was done in the ER and patient has been admitted for comfort care measures. At the time of the encounter, 3 daughters were at the bedside with her and there about 10 other family members in the room with her. I have examined her and reviewed her labs and also her imaging studies. Her CT scan shows chronic microvascular changes. No evidence of acute disease. ASSESSMENT: 1. Cardiopulmonary arrest. The patient was initially intubated in the ER, has been extubated because of DNR status. Family members have opted to do comfort measures only. 2. History of advanced COPD. We think she probably went into acute respiratory arrest since she did complain of having difficulty breathing and subsequently she had a cardiac arrest as well. 3. Hypertension. 4. Hypothyroidism. 5. Large hiatal hernia noted on previous CT scan. 6. Unresponsiveness most likely due to severe anoxic brain injury after the respiratory arrest. For now, we will continue with the comfort care measures including Ativan and Dilaudid for pain management. We will also get a Gloria catheter in and palliative nurse has been consulted. Please refer to the details of the H and P which has been dictated by the nurse. I have also explained the plan with the entire family that was at the bedside. cc: Matthew Park MD
[2019-07-16] MEDS: DILAUDID IV PRN ×4 (15:08→22:02)
[2019-07-17] MEDS: DILAUDID IV PRN ×7 (00:11→13:24)
[2019-07-17] MEDS: ATIVAN IV PRN ×7 (00:11→13:23)
--- NOTE | 2019-07-17 12:03 | PROGRESS NOTE ---
DATE: 07/17/2019 SUBJECTIVE: This morning, Ms. Moore was seen in the presence of her daughters and other family members. She remains unresponsive, and she is on a Venturi mask. OBJECTIVE: Vital signs: Blood pressure is 122/58, pulse of 92, respirations 16, temperature 97.5 degrees, patient is saturating 98%. General: Ms. oMore is a 79-year-old female. She is in bed, mild distress. HEENT: Mucosa is pink and moist. Anicteric. Acyanotic. Neck: Supple. Chest: Air entry was bilaterally reduced. The patient seems to have some pauses and shallow breathing. Air entry is bilaterally reduced. There are a few crackles posteriorly. Cardiovascular: Regular rate and rhythm. Abdomen: Soft. Extremities: No pedal edema. 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 Pupils are pinpoint and minimally reactive. No response to painful stimulation. LABORATORY DATA: No lab work for this morning. ASSESSMENT: 1. Status post cardiopulmonary arrest. 2. Advanced chronic obstructive pulmonary disease. 3. Acute hypoxemic respiratory failure. 4. Unresponsiveness, most likely related to severe anoxic brain injury. 5. Hypothyroidism. 6. Large hiatal hernia. 7. RIVETER HAND. 8. For now, we will continue with the RIVETER HAND measures. cc: Matthew Park MD
[2019-07-17 13:15] VITALS: BP 128/63
--- NOTE | 2019-07-17 17:06 | DISCHARGE SUMMARY ---
ADMISSION DATE: 07/16/2019 DISCHARGE DATE: 07/17/2019 DATE OF : 07/17/2019. TIME PRONOUNCED : 1435 by two attending nurses. CONSULTATIONS DURING THIS ADMISSION: None. IMAGING STUDIES OF SIGNIFICANCE.: A CT scan did show chronic microvascular changes. No evidence of acute disease. ADMISSION DIAGNOSIS: 1. Respiratory arrest. 2. Hypotension. 3. Leukocytosis. 4. Tobacco use. DIAGNOSIS AT THE TIME OF : 1. Status post cardiopulmonary arrest. 2. Acute hypoxemic respiratory failure. 3. Advanced chronic obstructive pulmonary disease. 4. Comatose after cardiopulmonary arrest, presumably due to severe anoxic brain injury. 5. Hypothyroidism. 6. Large hiatal hernia. PRESENTING COMPLAINT: Full arrest. HISTORY OF PRESENTING COMPLAINT: Ms. Moore is a 79-year-old female with a history of advanced COPD who was brought in by EMS to the ER after she was had witnessed arrest. Apparently the grandson did begin CPR. She was intubated on the field by EMS, was brought to the emergency room, was evaluated. At the time she was unresponsive but did have vitals. Ms. Moore's family reiterated her desire to be DNR level 1, so she was compassionately extubated in the ER and was admitted for comfort care measures. HOSPITAL COURSE: Ms. Moore was admitted to the medical floor under comfort care measures. She was started on oxygen therapy, pain medications, and other management for end of life comfort care. During the hospital course, there was no significant improvement. She continued to deteriorate until this afternoon. She was found asystolic on the telemetry monitoring. The nurses went to evaluate her. They found out that she had no respiratory efforts. No heartbeat. Pupils were dilated and nonreactive, and Ms. Moore did not have any reaction to any painful stimulation. She was thought to be . She was subsequently pronounced by two attending nurses. Family members were notified. cc: Matthew Park MD
--- NOTE | 2019-07-18 09:48 | EKG Report ---
Test Performed on : 07/16/2019 02:57:45 AM Test Reason : ED. No order in [place] Blood Pressure : / mmHG Vent. Rate : 115 BPM Atrial Rate : 115 BPM P-R Int : 144 ms QRS Dur : 094 ms QT Int : 364 ms P-R-T Axes : 085 084 078 degrees QTc Int : 503 ms Sinus tachycardia. Otherwise normal ECG No previous ECGs available Unconfirmed Result
== END 2019-07-17 14:35 | disposition expired | DRG 296 ==
LOC: SUPCPDRO → ED 03:06 → 3N 08:50
PROVIDERS: ATTEND Internal Medicine